=== PATIENT | female | born 1990 | race Caucasian/White ===

== ENCOUNTER 2016-10-07 22:06 | Emergency (ER) | payer OTHER ==
[~2016-10-07] VITALS: Ht 162.6 cm; Wt 92.5 kg
[~2016-10-07 22:06] MED LIST: IBUP800T25 PO; TRAM50TA2 PO
[2016-10-07 22:11] VITALS: Ht 162.6 cm; Wt 92.5 kg
[2016-10-07] MEDS ORDERED: ONDANSETRON 4 MG INJ IV STA (22:39)
[2016-10-07] MEDS ORDERED: SOD CHLORIDE 0.9% 500 ML IV STA (22:39)
[2016-10-07] MEDS ORDERED: morphine 4 MG/ML VIAL IV STA (22:39)
[2016-10-07 23:48] LABS: BASOPHILS % 0.2 % (0.0-2.0); EOSINOPHILS # 0.1 10^3/ul (0.0-0.5); EOSINOPHILS % 1.4 % (0.0-7.0); HEMATOCRIT 39.4 % (37.0-47.0); HEMOGLOBIN 12.8 g/dl (12.0-16.0); LYMPHOCYTES # 1.4 10^3/ul (0.8-2.9); LYMPHOCYTES % 16.1 % (15.0-51.0); MEAN CORPUSCULAR HEMOGLOBIN 30.5 pg (29.0-33.0); MEAN CORPUSCULAR HGB CONC 32.5 g/dl (32.0-37.0); MEAN PLATELET VOLUME 10.6 fl (7.4-10.4); MONOCYTE # 0.6 10^3/ul (0.3-0.9); MONOCYTES % 6.8 % (0.0-11.0); NEUTROPHIL # 6.3 10^3/ul (1.6-7.5); NEUTROPHILS % 75.3 % (39.0-77.0); PLATELET COUNT 243 10^3/UL (140-415); RED BLOOD COUNT 4.19 10^6/ul (4.20-5.40); WHITE BLOOD COUNT 8.4 10^3/ul (4.8-10.8)
[2016-10-08] MEDS ORDERED: ONDANSETRON 4 MG INJ IV STA (00:01)
[2016-10-08 00:18] LABS: INR 0.85; PROTIME 11.6 Sec (12.2-14.2); PT RATIO 0.9
[2016-10-08 00:19] LABS: PARTIAL THROMBOPLASTIN TIME 26.2 Sec (25.0-35.0)
[2016-10-08] MEDS ORDERED: morphine 4 MG/ML VIAL IV STA (00:22)
--- NOTE | 2016-10-08 00:22 | RADRPT ---
PROCEDURE: Pelvic ultrasound, limited. CLINICAL INDICATION: Pelvic pain. TECHNIQUE: Multiple sonographic images of the pelvis were obtained utilizing a transabdominal allan hnique. The images were reviewed on a PACS workstation. COMPARISON: None. FINDINGS: The uterus is visualized and measures 8.7 x 3.9 x 6.0 cm. No abnormal uterine mass is identified. T he endometrial echo complex is homogeneous and measures 5.4 mm. There is an intrauterine device in p lace. There is no evidence for free fluid. The right ovary has a normal echotexture and measures 3.7 x 2. 3 x 2.1 cm. The left ovary has a normal echotexture and measures 2.8 x 2.3 x 1.8 cm. There is norm al flow to both ovaries. No adnexal masses are identified. IMPRESSION: Intrauterine device in place. Otherwise unremarkable pelvic ultrasound. .Chris Luo MD, Date Time Electronically viewed and signed by .Chris Luo MD, MD on 10/08/2016 00:21 .T/
[2016-10-08 00:26] LABS: ADD SCAN DIFF NO
[2016-10-08 00:30] LABS: ALBUMIN 4.8 g/dl (3.3-4.9); ALBUMIN/GLOBULIN RATIO 1.04; BILIRUBIN,INDIRECT 0.1 mg/dl (0-1.1); BILIRUBIN,TOTAL 0.1 mg/dl (0.2-1.3); CALCIUM 8.8 mg/dl (8.4-10.2); CREATININE 0.75 mg/dl (0.44-1.00); POTASSIUM 3.4 mmol/L (3.5-5.1); TOTAL PROTEIN 9.4 g/dl (6.1-8.1)
[2016-10-08] MEDS ORDERED: IOHEXOL 300MG/ML 150 ML BTL ONE (00:37)
[2016-10-08] MEDS ORDERED: SOD CHLORIDE 0.9% 100 ML ONE (00:37)
--- NOTE | 2016-10-08 01:21 | RADRPT ---
PROCEDURE: CT Abdomen and pelvis with contrast. CLINICAL INDICATION: Abdominal pain. TECHNIQUE: CT scan of the abdomen and pelvis with contrast was performed on a multi-detector high -resolution CT scanner. The patient was scanned following the uncomplicated administration of 100 c c of Omnipaque 300 intravenous contrast. Coronal and sagittal reformatted images were obtained from the axial source images. Images were reviewed on a high-resolution PACS workstation. One or more of the following dose reduction techniques were used: - Automated exposure control. - Adjustment of the mA and/or kV according to patient size. - Use of iterative reconstruction technique. Exam CTD/vol = 20.56 mGy. Total exam DLP = 1154.05 mGy-cm. COMPARISON: None. FINDINGS: Evaluation of the lung bases demonstrates mild ground-glass opacities and multiple thin-walled cysts measuring up to 2.2 cm in size. Abdomen: The liver is normal in size. There is no focal mass or dilatation of the biliary tree. T he patient is status post cholecystectomy. The spleen, pancreas and bilateral adrenal glands are wi thin normal limits. Bilateral kidneys are normal in size with symmetric enhancement. There is no f ocal mass, hydronephrosis or hydroureter. There is no retroperitoneal adenopathy. The abdominal ao rta is of normal caliber. There is no abnormal bowel wall thickening or distension. There is no bowel obstruction or free air . A normal appendix is identified. There is no diverticulosis or diverticulitis. There is no asci von. Pelvis: The bladder is unremarkable. The uterus and adnexa are within normal limits. There is an intrauterine device in place. There is no significant pelvic adenopathy or free fluid. Evaluation of the osseous structures demonstrates no suspicious lytic or blastic lesion. IMPRESSION: No acute abnormality identified within the abdomen and pelvis. Status post cholecystectomy. Intrauterine device. Mild ground-glass opacities and multiple thin-walled cysts within the lung bases. Differential incl udes lymphangioleiomyomatosis and lymphoid interstitial pneumonia. .Chris Luo MD, Date Time Electronically viewed and signed by .Chris Luo MD, on 10/08/2016 01:21 .T/
[2016-10-08 01:30] LABS: ADD UMIC YES; UR ASCORBIC ACID NEGATIVE (NEGATIVE); UR BACTERIA FEW /HPF (NONE SEEN); UR BILIRUBIN (Dip) NEGATIVE (NEGATIVE); UR BLOOD (Dip) 3+ mg/dL (NEGATIVE); UR CLARITY SLIGHTLY CLOUDY (CLEAR); UR COLOR YELLOW (YELLOW); UR GLUCOSE (Dip) NEGATIVE (NEGATIVE); UR KETONES (Dip) NEGATIVE (NEGATIVE); UR LEUKOCYTE ESTERASE (Dip) NEGATIVE Leu/ul (NEGATIVE); UR MUCUS MODERATE /HPF (NONE SEEN); UR NITRITE (Dip) NEGATIVE (NEGATIVE); UR RBC 10 /HPF (0-5); UR SPECIFIC GRAVITY (Dip) 1.032 (1.003-1.030); UR SQUAMOUS EPITHELIAL CELL FEW /HPF (FEW); UR TOTAL PROTEIN (Dip) 1+ mg/dl (NEGATIVE); UR UROBILINOGEN (Dip) 1+ mg/dL (NEGATIVE)
[2016-10-08] MEDS ORDERED: NAPR-260 PO (01:34)
[2016-10-08] MEDS ORDERED: HYDR-906 PO (01:34)
[2016-10-08] MEDS ORDERED: CEPH-443 PO (01:54)
[2016-10-08] MEDS ORDERED: KETOROLAC 30 MG INJ IV STA (01:55)
[2016-10-08 02:26] VITALS: BP 116/72; PULSE 61; RESP 16
--- NOTE | 2016-10-09 17:27 | ERD ---
ER Documentation Chief Complaint Date/Time DATE: 10/09/16 TIME: 17:21 Chief Complaint ABD PAIN WITH N/V/D SINCE 1PM HPI This patient is a 26-year-old female with past medical history of cholecystitis and cholecystectomy presenting to the emergency department with lower abdominal cramping, pain and 2 episodes of vomiting which has been ongoing intermittently since this morning. All symptoms started today. Other associated symptoms include vaginal bleeding, however the patient is currently on her menstrual cycle. Pain is aggravated with walking. Pain is alleviated with rest. She took 400 mg of ibuprofen 3.5 hours ago with mild relief of symptoms. The patient denies urinary symptoms, fevers, or other symptoms currently. ROS All systems reviewed and are negative except as per history of present illness. Medications Home Meds Active Scripts Cephalexin* (Keflex*) 500 Mg Capsule, 500 MG PO TID for 7 Days, #21 CAP Prov:BILL HOUGH PA-C 10/08/16 Naproxen* (Naprosyn*) 500 Mg Tablet, 500 MG PO BID Y for PAIN AND/OR INFLAMMATION, #30 TAB Prov:BILL HOUGH PA-C 10/08/16 Hydrocodone/Acetaminophen ([place] 5-325 Tablet) 1 Each Tablet, 1 TAB PO Q6H Y for PAIN, #7 TAB Prov:BILL HOUGH PA-C 10/08/16 Tramadol HCl (Tramadol HCl) 50 Mg Tablet, 50 MG PO Q6, #20 TAB Prov:EVARISTO LITTLE DO 02/29/16 Ibuprofen* (Motrin*) 800 Mg Tab, 800 MG PO Q6H Y for PAIN AND OR ELEVATED TEMP, #30 TAB Prov:EVARISTO LITTLE DO 02/29/16 Allergies Allergies: Coded Allergies: No Known Drug Allergies (Verified Allergy, Mild, 10/07/16) PMhx/Soc History of Surgery: Yes (CHOLECYSTECTOMY) Anesthesia Reaction: No Hx Neurological Disorder: No Hx Respiratory Disorders: No Hx Cardiac Disorders: No Hx Psychiatric Problems: No Hx Miscellaneous Medical Probl: Yes ( DEMISE) Hx Alcohol Use: No Hx Substance Use: No Hx Tobacco Use: No Physical Exam Vitals Vital Signs Date Time Temp Pulse Resp B/P Pulse Ox O2 Delivery O2 Flow Rate FiO2 10/08/16 02:26 61 16 116/72 99 Room Air 10/07/16 22:11 98.7 88 18 113/74 97 Physical Exam Const: Nontoxic female in mild distress secondary to pain. Head: Atraumatic Eyes: Normal Conjunctiva ENT: Normal External Ears, Nose and Mouth. Neck: Full range of motion..~ No meningismus. Resp: Clear to auscultation bilaterally Cardio: Regular rate and rhythm, no murmurs Abd: Soft, there is diffuse tenderness to palpation of the abdomen, especially the suprapubic region, there is no rebound tenderness or guarding, there is no significant tenderness to palpation of McBurney's point, non distended. Normal bowel sounds Skin: No petechiae or rashes Back: No midline or flank tenderness Ext: No cyanosis, or edema Neur: Awake and alert Psych: Normal Mood and Affect Result Diagram: 10/07/16231910/07/162319 Results 24 hrs Laboratory Tests Test 10/07/16 23:20 10/08/16 00:20 White Blood Count 8.410^3/ul Red Blood Count 4.1910^6/ul Hemoglobin 12.8g/dl Hematocrit 39.4% Mean Corpuscular Volume 94.0fl Mean Corpuscular Hemoglobin 30.5pg Mean Corpuscular Hemoglobin Concent 32.5g/dl Red Cell Distribution Width 13.0% Platelet Count 47562^3/UL Mean Platelet Volume 10.6fl Neutrophils % 75.3% Lymphocytes % 16.1% Monocytes % 6.8% Eosinophils % 1.4% Basophils % 0.2% Nucleated Red Blood Cells % 0.0/100WBC Neutrophils # 6.310^3/ul Lymphocytes # 1.410^3/ul Monocytes # 0.610^3/ul Eosinophils # 0.110^3/ul Basophils # 0.010^3/ul Nucleated Red Blood Cells # 0.010^3/ul Prothrombin Time 11.6Sec Prothrombin Time Ratio 0.9 INR International Normalized Ratio 0.85 Activated Partial Thromboplast Time 26.2Sec Sodium Level 139mmol/L Potassium Level 3.4mmol/L Chloride Level 104mmol/L Carbon Dioxide Level 25mmol/L Anion Gap 13 Blood Urea Nitrogen 15mg/dl Creatinine 0.75mg/dl Glucose Level 91mg/dl Calcium Level 8.8mg/dl Total Bilirubin 0.1mg/dl Direct Bilirubin 0.00mg/dl Indirect Bilirubin 0.1mg/dl Aspartate Amino Transf (AST/SGOT) 27IU/L Alanine Aminotransferase (ALT/SGPT) 46IU/L Alkaline Phosphatase 110IU/L Total Protein 9.4g/dl Albumin 4.8g/dl Globulin 4.60g/dl Albumin/Globulin Ratio 1.04 Lipase 111U/L Urine Color YELLOW Urine Clarity SLIGHTLY CLOUDY Urine pH 6.0 Urine Specific [place] 1.032 Urine Ketones NEGATIVEmg/dL Urine Nitrite NEGATIVEmg/dL Urine Bilirubin NEGATIVEmg/dL Urine Urobilinogen 1+mg/dL Urine Leukocyte Esterase NEGATIVELeu/ul Urine Microscopic RBC 10/HPF Urine Microscopic WBC 8/HPF Urine Squamous Epithelial Cells FEW/HPF Urine Bacteria FEW/HPF Urine Mucus MODERATE/HPF Urine Hemoglobin 3+mg/dL Urine Glucose NEGATIVEmg/dL Urine Total Protein 1+mg/dl Current Medications Medications (Trade) Dose Ordered Sig/Abel Route PRN Reason Start Time Stop Time Status Last Admin Dose Admin Sodium Chloride (NS) 500 ml @ 500 mls/hr Q1H STAT IV 10/07/16 22:39 10/07/16 23:38 DC 10/07/16 23:14 Morphine Sulfate (morphine) 4 mg ONCE STAT IV 10/07/16 22:39 10/07/16 22:45 DC 10/07/16 23:14 Ondansetron HCl (Zofran Inj) 4 mg ONCE STAT IV 10/07/16 22:39 10/07/16 22:45 DC 10/07/16 23:13 Ondansetron HCl (Zofran Inj) 4 mg ONCE STAT IV 10/08/16 00:01 10/08/16 00:06 DC 10/08/16 00:25 Morphine Sulfate (morphine) 4 mg ONCE STAT IV 10/08/16 00:22 10/08/16 00:23 DC 10/08/16 00:29 IV Flush 10 ml 10 ml STK-MED ONCE .ROUTE 10/08/16 00:37 10/08/16 00:38 DC Sodium Chloride (NS) 100 ml @ ud STK-MED ONCE .ROUTE 10/08/16 00:37 10/08/16 00:38 DC Iohexol (Omnipaque 300mg/ ml) 150 ml STK-MED ONCE .ROUTE 10/08/16 00:37 10/08/16 00:38 DC Ketorolac Tromethamine (Toradol) 30 mg ONCE STAT IV 10/08/16 01:55 10/08/16 01:56 DC 10/08/16 02:02 [place] [address] Radiology Main Line: [phone] DIAGNOSTIC IMAGING REPORT Patient: ANDRADE RYDER : 1990 Age: 26 Sex: F MR #: [id number] DOS: 10/07/16 2239 Ordering MD: BILL HOUGH PA-C Location: [facility] Room/Bed: PROCEDURE: CT Abdomen and pelvis with contrast. CLINICAL INDICATION: Abdominal pain. TECHNIQUE: CT scan of the abdomen and pelvis with contrast was performed on a multi-detector high-resolution CT scanner. The patient was scanned following the uncomplicated administration of 100 cc of Omnipaque 300 intravenous contrast. Coronal and sagittal reformatted images were obtained from the axial source images. Images were reviewed on a high-resolution PACS workstation. One or more of the following dose reduction techniques were used: - Automated exposure control. - Adjustment of the mA and/or kV according to patient size. - Use of iterative reconstruction technique. Exam CTD/vol = 20.56 mGy. Total exam DLP = 1154.05 mGy-cm. COMPARISON: None. FINDINGS: Evaluation of the lung bases demonstrates mild ground-glass opacities and multiple thin-walled cysts measuring up to 2.2 cm in size. Abdomen: The liver is normal in size. There is no focal mass or dilatation of the biliary tree. The patient is status post cholecystectomy. The spleen, pancreas and bilateral adrenal glands are within normal limits. Bilateral kidneys are normal in size with symmetric enhancement. There is no focal mass, hydronephrosis or hydroureter. There is no retroperitoneal adenopathy. The abdominal aorta is of normal caliber. There is no abnormal bowel wall thickening or distension. There is no bowel obstruction or free air. A normal appendix is identified. There is no diverticulosis or diverticulitis. There is no ascites. Pelvis: The bladder is unremarkable. The uterus and adnexa are within normal limits. There is an intrauterine device in place. There is no significant pelvic adenopathy or free fluid. Evaluation of the osseous structures demonstrates no suspicious lytic or blastic lesion. IMPRESSION: No acute abnormality identified within the abdomen and pelvis. Status post cholecystectomy. Intrauterine device. Mild ground-glass opacities and multiple thin-walled cysts within the lung bases. Differential includes lymphangioleiomyomatosis and lymphoid interstitial pneumonia. .Chris Luo MD, MD Date Time Electronically viewed and signed by .Chris Luo MD, MD on 10/08/2016 01:21 .T/ CC: BILL HOUGH PA-C [place] [address] Radiology Main Line: [phone] DIAGNOSTIC IMAGING REPORT Patient: ANDRADE RYDER : 1990 Age: 26 Sex: F MR #: [id number] DOS: 10/07/16 0000 Ordering MD: BILL HOUGH PA-C Location: [facility] Room/Bed: PROCEDURE: Pelvic ultrasound, limited. CLINICAL INDICATION: Pelvic pain. TECHNIQUE: Multiple sonographic images of the pelvis were obtained utilizing a transabdominal technique. The images were reviewed on a PACS workstation. COMPARISON: None. FINDINGS: The uterus is visualized and measures 8.7 x 3.9 x 6.0 cm. No abnormal uterine mass is identified. The endometrial echo complex is homogeneous and measures 5.4 mm. There is an intrauterine device in place. There is no evidence for free fluid. The right ovary has a normal echotexture and measures 3.7 x 2.3 x 2.1 cm. The left ovary has a normal echotexture and measures 2.8 x 2.3 x 1.8 cm. There is normal flow to both ovaries. No adnexal masses are identified. IMPRESSION: Intrauterine device in place. Otherwise unremarkable pelvic ultrasound. .Chris Luo MD, MD Date Time Electronically viewed and signed by .Chris Luo MD, MD on 10/08/2016 00:21 .T/ CC: BILL HOUGH PA-C Procedures/[facility] [place] EMERGENCY DEPARTMENT COURSE / MEDICAL DECISION MAKING: This is a 26-year-old female who comes to the emergency room secondary to complaints of abdominal pain, nausea, vomiting. The patient was given IV Zofran, IV morphine, IV Toradol, IV fluids in the department. On re-evaluation, the patient was feeling improved. Lab results reviewed. CBC: No significant acute abnormalities Chemistry: No significant acute abnormalities UA: Possible early urinary tract infection Lipase: Within normal limits Radiology: CT scan of the abdomen and pelvis with contrast impression: No acute abnormality identified within the abdomen and pelvis. Status post cholecystectomy. Intrauterine device. Mild ground-glass opacities and multiple thin-walled cysts within the lung bases. Differential includes lymphangioleiomyomatosis and lymphoid interstitial pneumonia. Pelvic ultrasound impression: No significant acute abnormalities. Radiology was interpreted by the radiologist. I discussed the patient's results with her. I mentioned the finding of the groundglass opacities, she was advised to follow-up closely with her primary care physician regarding this manner. She was given copies of all of her results today. The primary diagnosis is urinary tract infection. Secondary diagnosis is abdominal pain with unclear etiology I have low suspicion for appendicitis, bowel obstruction, mesenteric ischemia, sepsis, or other emergent conditions at this time. Discharge: I have discussed the lab results and diagnostic findings with the patient and answered any questions or concerns. The patient was discharged with a prescription for Keflex, naproxen, and [place]. The patient was advised to followup with their PMD in 1-2 days and to return to the Emergency Department if there are any new or worsening symptoms. The patient understood and agreed with the diagnosis, treatment and plan. The patient is stable for discharge at this time. I discussed this patient's case with supervising physician, Dr. Filemon Zuniga, who agreed with the history, clinical examination, assessment, plan, and overall ED course. Departure Diagnosis: Primary Impression: Urinary tract infection Additional Impression: Abdominal pain Condition: Fair Patient Instructions: Abdominal Pain, Understanding Urinary Tract Infections ( UTIs) Additional Instructions: Follow up with your PCP within the next 1-3 days for a repeat evaluation. If you require a referral to a specialist, your Primary Care Provider may be able to provide this for you. In most patient cases, a referral is not required. If you have further questions regarding this matter, please ask your Primary Care Provider. Return the the emergency department immediately if symptoms worsen or change. If you have any questions regarding medications, ask your pharmacist or us before you leave. If any adverse reactions, occur while taking your medications, discontinue the treatment and return to the emergency department immediately. If any new or worsening symptoms, uncontrolled fevers, or other unexplained symptoms occur, return to the emergency department immediately. Take your medications as directed, and complete the entire course of treatment. BILL HOUGH PA-C Oct 09, 2016 17:27
== END 2016-10-08 02:28 | disposition home or self-care (01) ==
LOC: FTE 22:06
DX: N39.0 Urinary tract infection, site not specified (principal); R10.84 Generalized abdominal pain; R11.2 Nausea with vomiting, unspecified; R10.2 Pelvic and perineal pain
CPT/HCPCS: 74177; 76856; 80053; 81001; 83690; 85025; 85610; 85730; 87086; J1885; J2270; J2405; J7040; Q9967; Z7610; 36415; 96374; 96375; 96376

== ENCOUNTER 2017-02-26 19:46 | Emergency (ER) | payer OTHER ==
[~2017-02-26] VITALS: Ht 160 cm; Wt 88.1 kg
[~2017-02-26 19:46] MED LIST changes: +CEPH-443 PO; +HYDR-906 PO; +NAPR-260 PO
[2017-02-26 20:09] VITALS: Ht 160 cm; Wt 88.1 kg
[2017-02-26] MEDS ORDERED: ONDANSETRON (ODT) 4 MG TAB ODT STA (21:17)
[2017-02-26] MEDS ORDERED: ELEC100080 PO (21:23)
[2017-02-26] MEDS ORDERED: ONDA4TAB14 PO (21:23)
[2017-02-26] MEDS ORDERED: PROM25TA14 PO (21:24)
[2017-02-26] MEDS ORDERED: ACET325T33 PO (21:24)
--- NOTE | 2017-02-27 00:05 | ERD ---
ER Documentation Chief Complaint Chief Complaint fever, cough, and sore throat x2 days. HPI 6-year-old female presents to the emergency department complaining of fever, cough, sore throat for the past 2 days. States that she also had nonbilious nonbloody vomiting and nonbloody diarrhea denies any chest pain or shortness of breath denies abdominal pain ROS All systems reviewed and are negative except as per history of present illness. Medications Home Meds Active Scripts Promethazine Hcl* (Phenergan*) 25 Mg Tablet, 25 MG PO Q6 Y for NAUSEA AND/OR VOMITING, #10 TAB Prov:JAKE MOELLER PA-C 02/26/17 Acetaminophen* (Tylenol*) 325 Mg Tablet, 2 TAB PO Q4 Y for PAIN AND OR ELEVATED TEMP, #30 TAB Prov:JAKE MOELLER PA-C 02/26/17 Electrolyte,Oral (Pedialyte) 1,000 Ml Solution, 100 ML PO Q6, #1000 ML Prov:JAKE MOELLER PA-C 02/26/17 Ondansetron (Ondansetron Odt) 4 Mg Tab.rapdis, 4 MG PO Q6H Y for NAUSEA AND/OR VOMITING, #10 TAB Prov:JAKE MOELLER PA-C 02/26/17 Cephalexin* (Keflex*) 500 Mg Capsule, 500 MG PO TID for 7 Days, #21 CAP Prov:BILL HOUGH PA-C 10/08/16 Naproxen* (Naprosyn*) 500 Mg Tablet, 500 MG PO BID Y for PAIN AND/OR INFLAMMATION, #30 TAB Prov:BILL HOUGH PA-C 10/08/16 Hydrocodone/Acetaminophen ([place] 5-325 Tablet) 1 Each Tablet, 1 TAB PO Q6H Y for PAIN, #7 TAB Prov:BILL HOUGH PA-C 10/08/16 Tramadol HCl (Tramadol HCl) 50 Mg Tablet, 50 MG PO Q6, #20 TAB Prov:EVARISTO LITTLE DO 02/29/16 Ibuprofen* (Motrin*) 800 Mg Tab, 800 MG PO Q6H Y for PAIN AND OR ELEVATED TEMP, #30 TAB Prov:EVARISTO LITTLE DO 02/29/16 Allergies Allergies: Coded Allergies: No Known Drug Allergies (Verified Allergy, Mild, 10/07/16) PMhx/Soc History of Surgery: Yes (CHOLECYSTECTOMY) Anesthesia Reaction: No Hx Neurological Disorder: No Hx Respiratory Disorders: No Hx Cardiac Disorders: No Hx Psychiatric Problems: No Hx Miscellaneous Medical Probl: Yes ( DEMISE) Hx Alcohol Use: No Hx Substance Use: No Hx Tobacco Use: No Physical Exam Vitals Vital Signs Date Time Temp Pulse Resp B/P Pulse Ox O2 Delivery O2 Flow Rate FiO2 02/26/17 20:09 98.4 96 20 127/81 98 Physical Exam Const: [] Head: Atraumatic Eyes: Normal Conjunctiva ENT: Normal External Ears, Nose and Mouth. Neck: Full range of motion..~ No meningismus. Resp: Clear to auscultation bilaterally Cardio: Regular rate and rhythm, no murmurs Abd: Soft, non tender, non distended. Normal bowel sounds Skin: No petechiae or rashes Back: No midline or flank tenderness Ext: No cyanosis, or edema Neur: Awake and alert Psych: Normal Mood and Affect Results 24 hrs Current Medications Medications (Trade) Dose Ordered Sig/Abel Route PRN Reason Start Time Stop Time Status Last Admin Dose Admin Ondansetron HCl (Zofran Odt) 8 mg ONCE STAT ODT 02/26/17 21:17 02/26/17 21:18 DC 02/26/17 21:45 Procedures/MDM 6-year-old female presents to the emergency department with signs and symptoms most consistent with a viral u. Patient did not have any evidence of acute abdomen, she is afebrile nontoxic and appears well to be discharged home to follow-up with primary care physician. In the ED patient was given Zofran and pass the fluid challenge test. Patient was given prescription for Zofran, Tylenol and promethazine is close to return to the ER for any worsening signs or symptoms patient understands and agrees with this plan Departure Diagnosis: Primary Impression: Viral syndrome Condition: Stable Patient Instructions: Diet, Vomiting Or Diarrhea [6Yr-Adult], Viral Syndrome ( Adult) Additional Instructions: FOLLOW UP WITH YOUR PRIMARY CARE PHYSICIAN TOMORROW.Return to this facility if you are not improving as expected. Take all medicines as directed. Call your primary care doctor TOMORROW for an appointment during the next 1 WEEK.Tell the receptionist secretary that you were referred from this facility. See the doctor sooner or return here if your condition worsens before your appointment time. JAKE MOELLER PA-C Feb 27, 2017 00:05
== END 2017-02-26 21:46 | disposition home or self-care (01) ==
LOC: FTE 19:46
DX: B34.9 Viral infection, unspecified (principal)
CPT/HCPCS: 99284